=== PATIENT | female | born 1990 | race American Indian/Alaskan Native ===

== ENCOUNTER 2021-06-24 19:42 | Emergency (ER) | payer OTHER ==
[~2021-06-24] VITALS: Ht 162.6 cm; Wt 70.6 kg
[2021-06-24] MEDS ORDERED: ANUSOL-HC30 GM PR (21:04)
[2021-06-24] MEDS ORDERED: CONSTULOSE10 GM/15 M PO (21:04)
== END 2021-06-24 21:25 | disposition home or self-care (01) ==
LOC: ED 19:42
DX: K59.00 Constipation, unspecified (principal)
CPT/HCPCS: 74018; 99283-25

== ENCOUNTER 2022-11-27 10:13 | Emergency (ER) | payer OTHER, BC ==
[~2022-11-27] VITALS: Ht 162.6 cm; Wt 68.4 kg
[~2022-11-27 10:13] MED LIST: ANUSOL-HC30 GM PR; CONSTULOSE10 GM/15 M PO
[2022-11-27] MEDS ORDERED: HYDROCODON-ACE1 EA11 PO (11:03)
[2022-11-27] MEDS ORDERED: CEPHALEXIN500 M1 PO (11:03)
[2022-11-27 11:28] VITALS: BP 117/67
== END 2022-11-27 11:30 | disposition home or self-care (01) ==
LOC: ED 10:13
DX: S67.02XA Crushing injury of left thumb, initial encounter (principal); W23.0XXA Caught, crushed, jammed, or pinched between moving objects, initial encounter
CPT/HCPCS: 11760; 73140; 99283-25; A9270